=== PATIENT | female | born 1995 | race Caucasian/White ===

== ENCOUNTER 2018-08-23 14:17 | Emergency (ER) | payer OTHER ==
[2018-08-23] MEDS: LIDOCAINE 1% (MDV) 10 ML INJ INJ (15:24)
[2018-08-23] MEDS: LIDOCAINE 1% (MDV) 20 ML INJ INJ (15:30)
== END 2018-08-23 16:48 | disposition home or self-care (01) ==
LOC: FTE 14:17
DX: S91.202A Unspecified open wound of left great toe with damage to nail, initial encounter (principal); L60.0 Ingrowing nail; W26.8XXA Contact with other sharp object(s), not elsewhere classified, initial encounter; Y92.9 Unspecified place or not applicable
CPT/HCPCS: 11750; 99283-25

== ENCOUNTER 2018-09-23 13:49 | Emergency (ER) | payer OTHER ==
[2018-09-23] MEDS: LIDOCAINE 1% (MPF) 5 ML VIAL INJ (16:48)
== END 2018-09-23 17:07 | disposition home or self-care (01) ==
LOC: FTE 13:49
DX: L60.0 Ingrowing nail (principal)
CPT/HCPCS: 11765; 99283-25